=== PATIENT | female | born 1935 | race Caucasian/White ===

== ENCOUNTER 2018-11-16 10:12 | Inpatient (IN) | payer MEDICARE ==
[2018-11-16 12:55] VITALS: BMI 19.1
[2018-11-16] MEDS ORDERED: Acetaminophen 325 MG TAB PO PRN ×2 (13:30→13:40)
[2018-11-16] MEDS ORDERED: Ondansetron ODT 4 MG TAB PO PRN (13:50)
[2018-11-16] MEDS ORDERED: Lidocaine Patch Removal 1 EACH TOP SCH (14:15)
[2018-11-16] MEDS ORDERED: traMADol HCl 50 MG TAB PO PRN (14:19)
[2018-11-16] MEDS ORDERED: Lidocaine 5% Patch TD SCH (15:00)
[2018-11-16] MEDS: Methocarbamol 500 MG TAB PO PRN (15:05)
[2018-11-16] MEDS ORDERED: Ketorolac Tromethamine 10 MG TAB PO SCH (17:00)
[2018-11-16] MEDS: Hyoscyamine Sulfate SL 0.125 mg Tablet SL SCH (17:06)
[2018-11-16] MEDS ORDERED: Hyoscyamine Sulfate SL 0.125 mg Tablet SL SCH (18:00)
[2018-11-16] MEDS: Amlodipine 5 MG TAB PO SCH (20:44)
[2018-11-16] MEDS: Apixaban 5 MG TAB PO SCH (20:45)
[2018-11-16] MEDS: Famotidine 20 MG TAB PO SCH (20:46)
[2018-11-16] MEDS: Lidocaine 5% Patch TD SCH (20:47)
[2018-11-16] MEDS: Lisinopril 10 MG TAB PO SCH (20:47)
[2018-11-16] MEDS: Senokot S 8.6-50 MG TAB PO SCH (20:48)
[2018-11-16] MEDS: Acetaminophen 500 MG TAB PO PRN (20:52)
[2018-11-16] MEDS ORDERED: Amlodipine 5 MG TAB PO SCH (21:00)
[2018-11-16] MEDS ORDERED: Non-Formulary Item 1 EACH (Apixaban [Eliquis] 2.5 MG) PO SCH (21:00)
[2018-11-16] MEDS ORDERED: Non-Formulary Item 1 EACH (Lisinopril [Lisinopril] 20 MG) PO SCH (21:00)
[2018-11-17] MEDS ORDERED: Lidocaine 5% Patch TD SCH (00:01)
[2018-11-17] MEDS: Hyoscyamine Sulfate SL 0.125 mg Tablet SL SCH ×4 (01:17→17:34)
[2018-11-17] MEDS: Levothyroxine Sodium 75 MCG TAB PO SCH (05:18)
[2018-11-17] MEDS: Acetaminophen 500 MG TAB PO PRN ×3 (05:18→20:12)
[2018-11-17] MEDS: Apixaban 5 MG TAB PO SCH ×2 (08:15→20:09)
[2018-11-17] MEDS: Lisinopril 10 MG TAB PO SCH ×2 (08:15→20:11)
[2018-11-17] MEDS: traMADol HCl 50 MG TAB PO PRN ×2 (08:17→16:06)
[2018-11-17] MEDS: Methocarbamol 500 MG TAB PO PRN ×2 (08:17→16:06)
[2018-11-17] MEDS: Amlodipine 5 MG TAB PO SCH ×2 (08:18→20:08)
[2018-11-17] MEDS: Famotidine 20 MG TAB PO SCH ×2 (08:18→20:10)
[2018-11-17] MEDS: Amiodarone 200 MG TAB PO SCH (08:18)
[2018-11-17] MEDS: Senokot S 8.6-50 MG TAB PO SCH ×2 (08:20→20:12)
[2018-11-17] MEDS: Polyethylene Glycol 3350 17 GM Packet PO SCH (08:20)
[2018-11-17] MEDS: Lidocaine Patch Removal 1 EACH TOP SCH (08:20)
[2018-11-17] MEDS ORDERED: Non-Formulary Item 1 EACH (Cholecalciferol (Vitamin D3) [Vitamin D3] 1,000 UNIT) PO SCH (09:00)
[2018-11-17] MEDS ORDERED: Prevnar 13-Val Conj/PF 0.5 ML SYRINGE IM ONE (09:00)
[2018-11-17] MEDS ORDERED: LEVOTHYROXINE 75 MCG PO SCH (09:00)
[2018-11-17] MEDS ORDERED: Lidocaine Patch Removal 1 EACH TOP SCH (12:00)
--- NOTE | 2018-11-17 14:40 | HP ---
PRIMARY CARE PHYSICIAN: Out of town. REASON FOR ADMISSION: For skilled rehabilitation at [facility] secondary to physical debility due to chronic low back pain and generalized weakness. HISTORY OF PRESENT ILLNESS: Ms. Maldonado is an 83-year-old female, who presented to [facility] Emergency Room multiple times due to worsening back pain over the last month. The patient was seen in the ED on the and 26 of October and was treated with oral medicines and discharged with Flexeril and pain medicine, but she came back multiple times due to worsening pain. She was also admitted on the to for colitis and this resolved with antibiotics, Cipro and Flagyl. The patient returned to the emergency room on November 12, complaining of worsening lower back pain, and weakness. She stated the pain was worse with movement and better with lying still in bed. She denies any nausea, vomiting, or diarrhea. She denies any fall. She denies any recent injury or trauma. She was discharged last time with some lidocaine patches and Robaxin, and she said these did not really help with her pain, so the patient was subsequently admitted. The patient upon admission was noted to have hyponatremia. She was seen by senior geotechnical engineer, Dr. Cerrato. The patient's fluid was increased and hyponatremia upon discharge went from 127 at admission to 130 on the . The patient also was noted to have constipation and this was confirmed by the CT of the abdomen and pelvis. She was given GoLYTELY during her stay and this has clean her out. CT also confirmed L1, L3 compression fracture, which was aged. Due to allergies, the patient was also treated with oral tramadol for the pain. Due to her physical deconditioning, a decision was made to transfer the patient to [facility] for rehabilitation prior to discharge to her home. She was also put on a senna and MiraLAX bowel regimen and transferred. Upon evaluation of the patient today , she still complains of lower back pain. She is being given heating pad, ice packs, muscle relaxants, tramadol, and she is stating all of this is not helping with the pain. Initially, the patient said it helped, then the patient says medications are not helping, but she does not want to take any narcotics. She continues to deny any chest pain, nausea, vomiting, or diarrhea. She states she wants to go home. MEDICAL HISTORY: Hypertension; hyperlipidemia; hypothyroidism; chronic kidney disease, stage 3; paroxysmal atrial fibrillation, on Eliquis; chronic back pain. PAST SURGICAL HISTORY: Appendectomy, cholecystectomy, hysterectomy, oophorectomy, hiatal hernia repair. PSYCHIATRIC HISTORY: Anxiety and depression. ALLERGIES: CODEINE, FENTANYL, IODINE, PENICILLIN, SULFA, SHRIMP, CLOPIDOGREL. SOCIAL HISTORY: The patient lives with her family. Denies any alcohol or tobacco or illicit drug use. CURRENT MEDICATIONS: 1. Amiodarone 100 daily. 2. Tylenol 1000 q.6 p.r.n. 3. Amlodipine 2.5 b.i.d. 4. Eliquis 2.5 b.i.d. 5. Vitamin D3, 1000 units daily. 6. Pepcid 20 b.i.d. 7. Hyoscyamine 0.125 sublingual q.6 hours. 8. Levothyroxine 75 daily. 9. Lidoderm patch 5% to skin daily. 10. Lisinopril 20 b.i.d. 11. Robaxin 500 q.i.d. p.r.n. 12. Toprol-XL 50 daily. 13. MiraLAX 17 g daily. 14. Senokot two tablets b.i.d. 15. Tramadol 50 q.6 p.r.n. pain. CODE STATUS: The patient is a full code. REVIEW OF SYSTEMS: GENERAL: The patient complains of weakness. HEENT: No nosebleed, dysphagia, hearing issues, or vision issues. RESPIRATORY: Denies any cough, shortness of breath, or wheezing. CHEST: Denies any chest pain, palpitations, or dizziness. ABDOMEN: Denies abdominal pain, nausea, vomiting, diarrhea, or constipation. GENITOURINARY: Denies any hematuria or dysuria. SKIN: Denies any rashes or blisters. BACK: Complains of lower back pain. MUSCULOSKELETAL: Complains of gait instability. Complains of weakness due to debility and back pain. PSYCHIATRY: Denies anxiety or depression. HEMATOLOGIC: Denies lymph node swelling in axilla, neck, or cervical area. NEUROLOGIC: No focal deficit. PHYSICAL EXAMINATION: VITAL SIGNS: Temperature 98.1, pulse 63, respirations 16, O2 saturations 99% on room air, and blood pressure 167/75. GENERAL: The patient is alert, awake, and oriented x3, lying comfortably in bed , in no acute distress. HEENT: Normocephalic and atraumatic. PERRL. Anicteric sclerae. Oral mucous membranes are moist. NECK: Supple. No JVD. CHEST: Clear to auscultation bilaterally. ABDOMEN: Positive bowel sounds. Nontender, nondistended. SKIN: Warm. No rashes. NEUROLOGIC: Cranial nerves 2 through 12 are grossly intact. BACK: Mild tenderness to the left paraspinal and lumbar areas. PSYCH: Normal affect. ASSESSMENT: 1. Physical debility. 2. Acute on chronic back pain. 3. Hyponatremia. 4. Generalized weakness. 5. Paroxysmal atrial fibrillation. 6. Hypothyroidism. 7. History of compression fracture, L1 and L3. PLAN: The patient is an 83-year-old female, who will be admitted to [facility] bed for skilled rehabilitation and gait strengthening. We will consult Physical Therapy for strengthening in order to gain modified independence with gait. We will consult Occupational Therapy to help with activities of daily living. We will consider outpatient evaluation with possibly neurosurgeon and pain specialist. We will manage pain medicine with Lidoderm patches and tramadol due to multiple drug allergies. We will place the patient on muscle relaxants. We will alternate heating and cold compresses to back area. We will place the patient on Pepcid b.i.d. for GI prophylaxis, and the patient is on Eliquis due to paroxysmal atrial fibrillation. ESTIMATED LENGTH OF STAY: 2 to 3 weeks. DISPOSITION: Home. CODE STATUS: The patient is a full code. Job ID: [id number] MTDD
[2018-11-17] MEDS: Lidocaine 5% Patch TD SCH (20:11)
[2018-11-18] MEDS: Methocarbamol 500 MG TAB PO PRN ×2 (00:27→09:17)
[2018-11-18] MEDS: Hyoscyamine Sulfate SL 0.125 mg Tablet SL SCH ×4 (00:27→13:08)
[2018-11-18] MEDS: traMADol HCl 50 MG TAB PO PRN ×2 (00:27→09:16)
[2018-11-18] MEDS: Levothyroxine Sodium 75 MCG TAB PO SCH (05:41)
[2018-11-18] MEDS: Acetaminophen 500 MG TAB PO PRN ×2 (05:51→13:07)
[2018-11-18 07:34] VITALS: BP 133/66; TEMP 97.2
[2018-11-18] MEDS: Amlodipine 5 MG TAB PO SCH (09:14)
[2018-11-18] MEDS: Senokot S 8.6-50 MG TAB PO SCH (09:14)
[2018-11-18] MEDS: Polyethylene Glycol 3350 17 GM Packet PO SCH (09:14)
[2018-11-18] MEDS: Apixaban 5 MG TAB PO SCH (09:15)
[2018-11-18] MEDS: Amiodarone 200 MG TAB PO SCH (09:15)
[2018-11-18] MEDS: Famotidine 20 MG TAB PO SCH (09:15)
[2018-11-18] MEDS: Lisinopril 10 MG TAB PO SCH (09:15)
[2018-11-18] MEDS: Lidocaine Patch Removal 1 EACH TOP SCH (09:17)
== END 2018-11-18 15:25 | disposition home or self-care (01) | DRG 552 ==
LOC: MADMS 12:35
PROVIDERS: ADMIT Family Medicine; ATTEND Family Medicine
DX: M54.5 Low back pain (principal); E87.1 Hypo-osmolality and hyponatremia; R53.1 Weakness; G89.29 Other chronic pain; I48.0 Paroxysmal atrial fibrillation; E03.9 Hypothyroidism, unspecified; R53.81 Other malaise; E78.5 Hyperlipidemia, unspecified; N18.3 Chronic kidney disease, stage 3 (moderate); I12.9 Hypertensive chronic kidney disease with stage 1 through stage 4 chronic kidney disease, or unspecified chronic kidney disease; F41.9 Anxiety disorder, unspecified; F32.9 Major depressive disorder, single episode, unspecified; Z87.311 Personal history of (healed) other pathological fracture; Z90.49 Acquired absence of other specified parts of digestive tract; Z90.710 Acquired absence of both cervix and uterus; Z90.721 Acquired absence of ovaries, unilateral; Z88.0 Allergy status to penicillin; Z88.2 Allergy status to sulfonamides; Z88.5 Allergy status to narcotic agent; Z79.01 Long term (current) use of anticoagulants; Z79.899 Other long term (current) drug therapy

== ENCOUNTER 2018-12-03 11:33 | Outpatient (CLI) | payer MEDICARE ==
[2018-12-03 11:54] LABS: Bilirubin Negative (Negative); Blood, Urine Moderate (Negative); Clarity Cloudy (Clear); Glucose, Urine (Dipstick) Negative (Negative); Leukocyte Large (Negative); Nitrite Positive (Negative); Protein, Urine (Dipstick) Trace mg/dL (Neg-Trace)
[2018-12-03 12:01] LABS: Bacteria/HPF 2+ HPF (None Seen); RBC/HPF 21-50 HPF (0-3); Squamous Epithelial None Seen HPF (0-3); WBC/HPF Greater than 50 HPF (0-3)
== END 2018-12-03 11:34 | disposition home or self-care (01) ==
LOC: MADLAB 11:33
PROVIDERS: ATTEND Family Medicine
DX: E03.9 Hypothyroidism, unspecified (principal)
CPT/HCPCS: 81001; 87077; 87086; 87186

== ENCOUNTER 2018-12-14 18:47 | Emergency (ER) | payer MEDICARE ==
[2018-12-14] MEDS ORDERED: Sodium Chloride 0.9% 500 ML ONE (19:49)
[2018-12-14 20:00] LABS: #Basophils 0.1 thou/uL (0.0-0.2); #Eosinphils 0.1 thou/uL (0.0-0.7); #Lymphocytes 2.3 thou/uL (1.20-3.40); #Monocytes 0.9 thou/uL (0.11-0.59); #Neutrophils 11.2 thou/uL (1.40-6.50); %Basophils 0.5 % (0.0-1.0); %Eosinophils 0.5 % (0.0-10.0); %Lymphocytes 15.8 % (21.0-51.0); %Monocytes 6.2 % (0.0-10.0); Hemoglobin 12.9 g/dL (12.0-16.0); Mean Corpuscular HGB CONC 34.8 g/dL (32.0-36.0); Mean Corpuscular Hemoglobin 30.6 pg (27.0-31.0); Platelet Count 331 thou/uL (130-400); RBC Distribution Width 13.2 % (11.5-14.5); White Blood Cell (WBC) Count 14.5 thou/uL (4.8-10.8)
[2018-12-14 20:19] LABS: ALT (SGPT) 9 U/L (8-55); AST (SGOT) 17 U/L (5-34); Albumin 3.8 g/dL (3.4-4.8); Alkaline Phosphatase 74 U/L (40-150); Anion Gap 15 mmol/L (10-20); BUN (Urea Nitrogen) 16 mg/dL (9.8-20.1); Bilirubin, Total 0.9 mg/dL (0.2-1.2); Calc. Creatinine Clearance 0 mL/min (70-130); Calcium 9.1 mg/dL (7.8-10.44); Carbon Dioxide 25 mmol/L (23-31); Chloride 97 mmol/L (98-107); Estimated GFR-MDRD 50; Globulin 3.2 g/dL (2.4-3.5); Glucose 102 mg/dL (83-110); Lipase 28 U/L (8-78); Potassium 3.9 mmol/L (3.5-5.1); Sodium 133 mmol/L (136-145)
[2018-12-14] MEDS ORDERED: Ondansetron PF 4 MG/2 ML Vial ONE (20:32)
== END 2018-12-14 23:21 | disposition home or self-care (01) ==
LOC: MADERS 18:47
DX: E86.0 Dehydration (principal); R11.2 Nausea with vomiting, unspecified; I48.91 Unspecified atrial fibrillation; E03.9 Hypothyroidism, unspecified; E78.5 Hyperlipidemia, unspecified; I10 Essential (primary) hypertension; F41.9 Anxiety disorder, unspecified; F32.9 Major depressive disorder, single episode, unspecified; Z79.899 Other long term (current) drug therapy; Z79.01 Long term (current) use of anticoagulants
CPT/HCPCS: 36415; 80053; 83690; 83880; 84484; 85025; 93005; 96361; 96374; J2405; J7050

== ENCOUNTER 2019-03-16 22:50 | Emergency (ER) | payer MEDICARE ==
[~2019-03-16 22:50] MED LIST: Sodium Chloride 0.9% 1,000 ML BAG ONE
[2019-03-16 23:34] LABS: #Basophils 0.1 thou/uL (0.0-0.2); #Eosinphils 0.3 thou/uL (0.0-0.7); #Lymphocytes 1.5 thou/uL (1.20-3.40); #Monocytes 1.5 thou/uL (0.11-0.59); #Neutrophils 14.3 thou/uL (1.40-6.50); %Basophils 0.5 % (0.0-1.0); %Eosinophils 1.5 % (0.0-10.0); %Lymphocytes 8.6 % (21.0-51.0); %Monocytes 8.6 % (0.0-10.0); %Neutrophils 80.8 % (42.0-75.0); Hemoglobin 12.9 g/dL (12.0-16.0); Mean Corpuscular HGB CONC 34.6 g/dL (32.0-36.0); Mean Corpuscular Hemoglobin 31.1 pg (27.0-31.0); Mean Corpuscular Volume 89.8 fL (78.0-98.0); Platelet Count 214 thou/uL (130-400); Red Blood Cell (RBC) Count 4.14 mill/uL (4.20-5.40); White Blood Cell (WBC) Count 17.7 thou/uL (4.8-10.8)
[2019-03-16 23:51] LABS: Anion Gap 15 mmol/L (10-20); BUN (Urea Nitrogen) 20 mg/dL (9.8-20.1); Calc. Creatinine Clearance 0 mL/min (70-130); Calcium 9.8 mg/dL (7.8-10.44); Carbon Dioxide 22 mmol/L (23-31); Chloride 105 mmol/L (98-107); Estimated GFR-MDRD 61; Glucose 115 mg/dL (83-110); Potassium 3.9 mmol/L (3.5-5.1); Sodium 138 mmol/L (136-145)
[2019-03-16 23:52] LABS: ALT (SGPT) 12 U/L (8-55); AST (SGOT) 20 U/L (5-34); Albumin 4.1 g/dL (3.4-4.8); Alkaline Phosphatase 51 U/L (40-110); Globulin 2.7 g/dL (2.4-3.5); Lipase 16 U/L (8-78); Protein, Total 6.8 g/dL (6.0-8.3)
[2019-03-17 00:31] LABS: Bilirubin Small (Negative); Blood, Urine Negative (Negative); Clarity Clear (Clear); Glucose, Urine (Dipstick) Negative (Negative); Leukocyte Negative (Negative); Nitrite Negative (Negative); Protein, Urine (Dipstick) Negative (Neg-Trace)
--- NOTE | 2019-03-17 07:48 | RAD ---
EXAM: Single view of the chest HISTORY: Diarrhea, chills, and lung crackles COMPARISON: 11/12/2018 FINDINGS: Single view of the chest shows a normal sized cardiomediastinal silhouette. Atheroscleroti c calcifications are seen in the aorta. There is no evidence of consolidation, mass, or pleural effusion. The bones are unremarkable. IMPRESSION: No evidence of acute cardiopulmonary disease
== END 2019-03-17 01:30 | disposition home or self-care (01) ==
LOC: MADERS 22:50
DX: R19.7 Diarrhea, unspecified (principal); D72.829 Elevated white blood cell count, unspecified; I48.91 Unspecified atrial fibrillation; E03.9 Hypothyroidism, unspecified; E78.5 Hyperlipidemia, unspecified; I10 Essential (primary) hypertension; F41.9 Anxiety disorder, unspecified; F32.9 Major depressive disorder, single episode, unspecified; Z79.899 Other long term (current) drug therapy
CPT/HCPCS: 36415; 51701; 71045; 80053; 81003; 83605; 83690; 85025; 87040; 94760; 96360; J7050

== ENCOUNTER 2020-05-23 16:14 | Emergency (ER) | payer MEDICARE ==
--- NOTE | 2020-05-23 17:14 | RAD ---
Right foot 3 views HISTORY: Injury. FINDINGS: Mild widespread joint space narrowing and osteophytosis. Lisfranc joint alignment is anatom ic. Exaggerated plantar arch. Calcification over the arterial structures. Osseous structures are markedly demineralized. IMPRESSION : Piedad mild osteoarthritic changes. No acute osseous abnormalities are demonstrated. Osteoporosis. Atherosclerosis.
== END 2020-05-23 17:43 | disposition home or self-care (01) ==
LOC: MADERS 16:14
DX: S93.601A Unspecified sprain of right foot, initial encounter (principal); I10 Essential (primary) hypertension; W18.30XA Fall on same level, unspecified, initial encounter

== ENCOUNTER 2022-02-03 11:54 | Outpatient (CLI) | payer MEDICARE ==
[2022-02-03 12:34] LABS: #Basophils 0.1 thou/uL (0.0-0.2); #Eosinphils 0.2 thou/uL (0.0-0.7); #Lymphocytes 2.2 thou/uL (1.20-3.40); #Monocytes 0.6 thou/uL (0.11-0.59); #Neutrophils 4.5 thou/uL (1.40-6.50); %Basophils 0.8 % (0.0-1.0); %Eosinophils 2.6 % (0.0-10.0); %Lymphocytes 28.9 % (21.0-51.0); %Monocytes 8.4 % (0.0-10.0); %Neutrophils 59.4 % (42.0-75.0); Hemoglobin 12.4 g/dL (12.0-16.0); Mean Corpuscular HGB CONC 31.1 g/dL (32.0-36.0); Mean Corpuscular Hemoglobin 26.9 pg (27.0-31.0); Mean Corpuscular Volume 86.4 fL (78.0-98.0); Mean Platelet Volume 7.3 fL (7.4-10.4); Platelet Count 196 thou/uL (130-400); RBC Distribution Width 12.3 % (11.5-14.5); Red Blood Cell (RBC) Count 4.62 mill/uL (4.20-5.40); White Blood Cell (WBC) Count 7.5 thou/uL (4.8-10.8)
[2022-02-03 12:44] LABS: Anion Gap 13 mmol/L (10-20); BUN (Urea Nitrogen) 13 mg/dL (9.8-20.1); Calc. Creatinine Clearance 0 mL/min (70-130); Calcium 10.4 mg/dL (7.8-10.44); Carbon Dioxide 26 mmol/L (23-31); Chloride 101 mmol/L (98-107); Estimated GFR 73; Glucose 98 mg/dL (83-110); Potassium 4.6 mmol/L (3.5-5.1); Sodium 135 mmol/L (136-145)
[2022-02-03 16:36] LABS: Hemoglobin A1c 5.2 % (4.0-6.0)
== END 2022-02-03 11:55 | disposition home or self-care (01) ==
LOC: MADLAB 11:54 → MADEKG 11:55
PROVIDERS: ATTEND Family Medicine
DX: R55 Syncope and collapse (principal)
CPT/HCPCS: 80048; 83036; 84443; 85025; 93005; 93010

== ENCOUNTER 2022-05-20 13:32 | Outpatient (CLI) | payer MEDICARE | END 2022-05-20 13:33 | disposition home or self-care (01) | LOC: MADEKG 13:32 | PROVIDERS: ATTEND Internal Medicine | DX: I49.9 Cardiac arrhythmia, unspecified (principal) | CPT/HCPCS: 93005; 93010 ==

== ENCOUNTER 2023-01-10 12:27 | Emergency (ER) | payer MEDICARE ==
[2023-01-10 13:29] LABS: #Basophils 0.1 thou/uL (0.0-0.2); #Eosinphils 0.2 thou/uL (0.0-0.7); #Lymphocytes 1.8 thou/uL (1.20-3.40); #Monocytes 0.8 thou/uL (0.11-0.59); #Neutrophils 6.6 thou/uL (1.40-6.50); %Basophils 0.9 % (0.0-1.0); %Eosinophils 2.2 % (0.0-10.0); %Lymphocytes 19.2 % (21.0-51.0); %Neutrophils 69.7 % (42.0-75.0); Hemoglobin 12.6 g/dL (12.0-16.0); Mean Corpuscular Volume 84.9 fl (78.0-98.0); Mean Platelet Volume 6.8 fL (7.4-10.4); Platelet Count 209 10x3/uL (130-400); RBC Distribution Width 13.2 % (11.5-14.5); Red Blood Cell (RBC) Count 4.48 mill/uL (4.20-5.40); White Blood Cell (WBC) Count 9.5 10x3/uL (4.8-10.8)
[2023-01-10 13:45] LABS: ALT (SGPT) 7 U/L (8-55); AST (SGOT) 19 U/L (5-34); Albumin 3.8 g/dL (3.4-4.8); Alkaline Phosphatase 63 U/L (40-110); Anion Gap 14 mmol/L (10-20); BUN (Urea Nitrogen) 13 mg/dL (9.8-20.1); Calc. Creatinine Clearance 0 mL/min (70-130); Calcium 9.7 mg/dL (7.8-10.44); Carbon Dioxide 25 mmol/L (23-31); Chloride 103 mmol/L (98-107); Estimated GFR 68; Globulin 3.2 g/dL (2.4-3.5); Glucose 96 mg/dL (83-110); Magnesium 2.4 mg/dL (1.6-2.6); Potassium 4.1 mmol/L (3.5-5.1); Sodium 138 mmol/L (136-145); Troponin I Less than 0.010 ng/mL (< 0.028)
== END 2023-01-10 14:09 | disposition home or self-care (01) ==
LOC: MADERS 12:27
DX: R55 Syncope and collapse (principal); I48.91 Unspecified atrial fibrillation; I10 Essential (primary) hypertension; E78.5 Hyperlipidemia, unspecified; E03.9 Hypothyroidism, unspecified; Z79.01 Long term (current) use of anticoagulants; Z79.899 Other long term (current) drug therapy
CPT/HCPCS: 80053; 83735; 83880; 84484; 85025; 93005; 94760